=== PATIENT | male | born 1940 | race Caucasian/White ===

== ENCOUNTER 2017-11-26 07:20 | Day surgery (SDC) | payer MEDICARE, BC ==
[2017-11-18 16:49] VITALS: BMI 32.8
[2017-11-26] MEDS ORDERED: SODIUM CHLORIDE 0.9% 1,000 ML IV ONE (07:45)
[2017-11-26 08:09] VITALS: TEMP 97.9
[2017-11-26] MEDS ORDERED: SODIUM CHLORIDE 0.9% 1,000 ML IV SCH ×2 (08:15→09:15)
[2017-11-26 08:16] LABS: Basophils # (A) 0.1 k/uL (0-0.2); Basophils % (A) 1 %; Eosinophils # (A) 0.1 k/uL (0-0.7); Eosinophils % (A) 2 %; HCT 42.3 % (39.0-53.0); HGB 14.3 gm/dL (13.0-17.5); Lymphocytes # (A) 1.1 k/uL (1.0-4.8); Lymphocytes % (A) 27 %; MCH 28.9 pg (25.0-35.0); MCHC 33.8 g/dL (31.0-37.0); MCV 85.5 fL (80.0-100.0); Mean Platelet Volume 7.8; Monocytes # (A) 0.3 k/uL (0-1.0); Monocytes % (A) 7 %; Neutrophils # (A) 2.6 k/uL (1.3-7.7); Neutrophils % (A) 62 %; Platelet Count 166 k/uL (150-450); RBC 4.95 m/uL (4.30-5.90); RDW 14.5 % (11.5-15.5); WBC 4.3 k/uL (3.8-10.6)
[2017-11-26 08:24] LABS: Glucose,Whole Blood 155 mg/dL (75-99)
[2017-11-26 08:38] LABS: Calcium 9.3 mg/dL (8.4-10.2); Potassium 4.1 mmol/L (3.5-5.1)
[2017-11-26] MEDS ORDERED: MIDAZOLAM 2 MG/2 ML VIAL IVP ONE (08:54)
[2017-11-26] MEDS ORDERED: LIDOCAINE 1% (PF) 10MG/ML VIAL SQ ONE (08:55)
[2017-11-26] MEDS ORDERED: IOPAMIDOL-250 50ML BTL INTRAARTER ONE (09:08)
[2017-11-26] MEDS ORDERED: IOPAMIDOL-250 100ML BTL INTRAARTER ONE (09:08)
--- NOTE | 2017-11-26 09:41 | AN ---
ANGIOGRAPHY REPORT DATE OF SERVICE: 11/26/2017 PERFORMING PHYSICIAN: Robin Lucas MD, Wafer Polishing Lead Worker PROCEDURE PERFORMED: 1. An abdominal aortogram. 2. Bilateral lower extremities runoff. INDICATION: This is a very pleasant 77-year-old gentleman who sees Dr. Doe in the office as an outpatient with a past medical history significant for end-stage renal disease and the patient status post kidney transplant as well as diabetes, hypertension, and dyslipidemia, was experiencing bilateral lower extremities intermittent claudication and underwent an arterial duplex study which revealed occluded left SFA and severe disease involving the right SFA. Because of that and because of his symptoms, an abdominal aortogram and bilateral lower extremities runoff was advised. COMPLICATION: None. LEVEL OF SEDATION: Moderate with sedation length of 16 minutes. PROCEDURE DESCRIPTION: After obtaining an informed consent, the patient was brought to the cardiac lab pack chemist. The right common femoral artery was cannulated using micropuncture technique, the micropuncture wire passed easily, then I placed a 5-South Sudanese sheath in the right common femoral artery. After that, I did an abdominal aortogram and bilateral lower extremities runoff using 5-[place]ese pigtail catheter which was initially placed at the level of the renal arteries, then it was pulled into above the bifurcation of the aorta to right and left common iliac arteries. The procedure was completed without any complication. SELECTIVE PERIPHERAL ANGIOGRAM: 1. The abdominal aorta is calcified with mild disease only. 2. COMMON ILIAC ARTERIES: The right and left common iliac arteries are calcified with intermediate lesion in the range of 50% to 60%. 3. THE INTERNAL ILIAC ARTERIES: The right internal iliac artery appeared to be patent as well as the left internal iliac artery. The transplanted kidney was well opacified in the right pelvis. 4. EXTERNAL ILIAC ARTERIES: The right and left external iliac arteries appeared to be angiographically normal. 5. COMMON FEMORAL ARTERIES: The right common femoral artery appeared to be normal as well as the and the left common femoral artery appeared to have mild disease only. 6. PROFUNDA: The right and left profunda are patent. 7. THE SFA: The right SFA and left SFA are heavily calcified with short area of AIR DEFENSE SPECIALIST bilaterally. 8. POPLITEAL: The right and left popliteal appeared to be calcified with mild disease only. 9. BELOW THE KNEE: The arteries below the knee were not well visualized but probably there are 3-vessel runoff below the knee bilaterally. CONCLUSION: 1. Intermediate to severe bilateral common iliac artery disease. 2. Occluded bilateral SFA with short area of occlusion bilaterally as well as heavily calcified arteries. POSTPROCEDURE MANAGEMENT: 1. Gradient measurement across the iliac artery to assess for flow-limiting lesions. 2. PRINCIPAL DATA ARCHITECT of the right and left SFA on 2 separate sessions. MIKAELA / LUCASN: [id number] /
[2017-11-26 10:14] VITALS: RESP 16
--- NOTE | 2017-11-26 10:45 | IR ---
EXAMINATION TYPE: IR angio abdominal w runoff DATE OF EXAM: 11/26/2017 COMPARISON: NONE HISTORY: Peripheral vascular occlusive disease. Fluoroscopy was provided to the referring clinician. See dictated report from cardiology.
[2017-11-26 11:58] LABS: Glucose,Whole Blood 186 mg/dL (75-99)
[2017-11-26] MEDS ORDERED: INSULIN ASPART 100 UNIT/ML 1 ML 10 ML VIAL SQ SCH (12:30)
[2017-11-26 12:46] VITALS: BP 159/80; PULSE 65
[2017-11-26] MEDS: SODIUM CHLORIDE 0.9% 250 ML IV SCH ×7 (12:53→15:21)
== END 2017-11-26 16:03 | disposition home or self-care (01) ==
LOC: CATHCVL 07:20 → EDSEX 07:20 → 3OBS 09:31 → CATHCVL 16:03
PROVIDERS: ATTEND Internal Medicine Interventional Cardiology
DX: I70.213 Atherosclerosis of native arteries of extremities with intermittent claudication, bilateral legs (principal); I70.0 Atherosclerosis of aorta; I25.10 Atherosclerotic heart disease of native coronary artery without angina pectoris; E11.22 Type 2 diabetes mellitus with diabetic chronic kidney disease; I25.2 Old myocardial infarction; I12.9 Hypertensive chronic kidney disease with stage 1 through stage 4 chronic kidney disease, or unspecified chronic kidney disease; N18.9 Chronic kidney disease, unspecified; E78.5 Hyperlipidemia, unspecified; E11.51 Type 2 diabetes mellitus with diabetic peripheral angiopathy without gangrene; Z94.0 Kidney transplant status; Z79.4 Long term (current) use of insulin; Z79.899 Other long term (current) drug therapy; Z79.82 Long term (current) use of aspirin
CPT/HCPCS: 36200; 75625; 75716; 80048; 85025; 83036; C1769 ×3; C1894; J2250; J2001; Q9966 ×2

== ENCOUNTER → 2017-12-19 | Outpatient (CLI) | payer MEDICARE, BC ==
[2017-12-19 11:47] LABS: HCT 45.5 % (39.0-53.0); HGB 14.8 gm/dL (13.0-17.5); MCH 28.5 pg (25.0-35.0); MCHC 32.4 g/dL (31.0-37.0); MCV 87.9 fL (80.0-100.0); Mean Platelet Volume 7.8; Platelet Count 196 k/uL (150-450); RBC 5.18 m/uL (4.30-5.90); RDW 14.6 % (11.5-15.5); WBC 5.5 k/uL (3.8-10.6)
== END | disposition home or self-care (01) ==
LOC: LABPAT 11:19
PROVIDERS: ATTEND Internal Medicine Interventional Cardiology
DX: Z01.818 Encounter for other preprocedural examination (principal); I10 Essential (primary) hypertension; I70.213 Atherosclerosis of native arteries of extremities with intermittent claudication, bilateral legs; E78.1 Pure hyperglyceridemia
CPT/HCPCS: 36415; 85027

== ENCOUNTER 2017-12-24 08:20 | Day surgery (SDC) | payer MEDICARE, BC ==
[2017-12-18 15:31] VITALS: BMI 32.8
[2017-12-24] MEDS: ASPIRIN 325 MG TAB PO SCH (09:22)
[2017-12-24] MEDS ORDERED: SODIUM CHLORIDE 0.9% 1,000 ML IV ONE (09:25)
[2017-12-24 10:00] LABS: Glucose,Whole Blood 168 mg/dL (75-99)
[2017-12-24] MEDS ORDERED: LIDOCAINE 1% INJ 10MG/ML (20 ML MDV) SQ ONE (13:21)
[2017-12-24] MEDS: MIDAZOLAM 2 MG/2 ML VIAL IVP ONE ×3 (13:23→13:38)
[2017-12-24] MEDS: fentaNYL (PF) 50 MCG/ML 2 ML AMP IVP ONE ×2 (13:23→14:16)
[2017-12-24] MEDS ORDERED: CLOPIDOGREL 75 MG TAB PO ONE (13:37)
[2017-12-24] MEDS: NITROGLYCERIN 1000MCG/10ML SYRINGE INTRAARTER ONE ×2 (16:09→16:17)
[2017-12-24] MEDS ORDERED: niCARdipine Syringe (1,000 mcg/10 mL) INTRAARTER ONE (16:17)
[2017-12-24] MEDS ORDERED: IOPAMIDOL-250 100ML BTL INTRAARTER ONE (16:32)
[2017-12-24] MEDS ORDERED: SODIUM CHLORIDE 0.9% 1,000 ML IV SCH (16:45)
[2017-12-24] MEDS ORDERED: INSULIN ASPART 100 UNIT/ML 1 ML 10 ML VIAL SQ SCH (17:30)
[2017-12-24] MEDS: SODIUM CHLORIDE 0.9% 1,000 ML IV SCH ×4 (17:46→21:51)
[2017-12-24 18:12] LABS: Glucose,Whole Blood 112 mg/dL (75-99)
[2017-12-24] MEDS ORDERED: ATROPINE SULFATE 0.1 MG/ML 10ML SYRINGE ONE (18:39)
[2017-12-24] MEDS ORDERED: MORPHINE SULFATE 2 MG/ML SYRINGE IVP ONE (19:50)
[2017-12-24] MEDS ORDERED: HYDROcodone/APAP 5-325MG 1 EACH TAB PO PRN (19:51)
--- NOTE | 2017-12-24 19:58 | LTR ---
DATE OF SERVICE: 12/24/2017 Dear Zafar: Mr. Galdino Riley underwent successful angioplasty and stenting of the left femoral artery with good angiographic results and without any complication. Thank you for allowing us to participate in his care and please do not hesitate to call if you have any questions or concerns. Sincerely, MMJASONL / IJN: [id number] /
[2017-12-24 20:04] VITALS: RESP 18
[2017-12-24 20:47] LABS: Glucose,Whole Blood 89 mg/dL (75-99)
[2017-12-24] MEDS ORDERED: INSULIN DETEMIR 100 UNIT/ML 10 ML VIAL SQ SCH (21:00)
[2017-12-24] MEDS ORDERED: NON-FORMULARY DRUG (Fish Oil/Dha/Epa [Fish Oil 1,200 Mg Fish Oil] 1,000 MG) PO SCH (21:00)
[2017-12-24] MEDS ORDERED: ATORVASTATIN 10 MG TAB PO SCH (21:00)
[2017-12-24] MEDS ORDERED: TAMSULOSIN 0.4 MG CAP.ER.24H PO SCH (21:00)
[2017-12-24] MEDS: MYCOPHENOLATE MOFETIL 500 MG TAB PO SCH (21:28)
[2017-12-24] MEDS: MYCOPHENOLATE MOFETIL 250 MG CAP PO SCH (21:28)
[2017-12-24] MEDS: TACROLIMUS 1 MG CAP PO SCH (21:29)
[2017-12-24] MEDS: amLODIPine 5 MG TAB PO SCH (21:51)
[2017-12-25] MEDS: ASPIRIN 325 MG TAB PO SCH (05:02)
--- NOTE | 2017-12-25 05:43 | AN ---
ANGIOGRAPHY REPORT PERCUTANEOUS PERIPHERAL INTERVENTION: DATE OF SERVICE: December 24, 2017 PERFORMING PHYSICIAN: Robin Lucas MD, shaper operator. PROCEDURE PERFORMED: 1. Selective left hlvvm-rxr-dvjr angiogram. 2. Selective left popliteal/SFA angiogram. 3. Selective right common and external iliac arteries angiogram. 4. Selective right common femoral artery angiogram. 5. An atherectomy of the left SFA using the TurboHawk device with extraction of plaque. 6. Balloon angioplasty of the right SFA using drug-coated balloon with inadequate angiographic results. 7. Successful stenting of the mid and distal left SFA using a 7.0 x 100 and 7.0 x 120 mm drug-coated balloon with excellent angiographic results. INDICATION: This is a pleasant 77-year-old gentleman who sees Dr. Doe as an outpatient with history of end-stage renal disease and status post renal transplant who was experiencing bilateral lower extremities intermittent claudication and underwent a peripheral angiogram and that revealed occluded bilateral SFA. He was brought today to undergo a JAVA J2EE APPLICATION DEVELOPER of the left SFA. APPROACH: Right common femoral artery. COMPLICATION: None. LEVEL OF SEDATION: Moderate, sedation length of 3 hours. PROCEDURE DESCRIPTION: After obtaining an informed consent, the patient was brought to the cardiac slab inspector. The right common femoral artery was cannulated using micropuncture technique, the micropuncture wire passed easily then I placed a 6-Ukrainian sheath in the right common femoral artery. I placed a 6-Ukrainian 11 cm sheath. Anticoagulation was initiated using heparin and the patient was given a weight-based heparin. After that I did select left SFA using a Rim catheter with 0.035 stiff Glidewire. I had a hard time going up and over. Finally I was able to make the sheath going using 0.035 stiff Glidewire with a 55 cm 6-Ukrainian Jasbir sheath with support of multipurpose catheter inside the sheath. After that I did selective left idthw-erd-cuhz angiogram, selective left popliteal/SFA angiogram, selective left SFA angiogram. After that, I tried crossing the chronic total occlusion of the left SFA using tip Glidewire, but I ended in subintimal space. Finally I was able to cross it using 0.035 Glidewire, which was stiff Glidewire with the backup support of 0.035 catheter. After that, I did selective left popliteal angiogram to prove that I was in the true lumen. Subsequently I did exchange my 0.035 wire into 0.014 mailman wire using the 0.035 CXI. I did multiple runs of directional atherectomy using the TurboHawk device. After that, I did balloon angioplasty using using 6 mm Chocolate balloon and subsequently 6 mm drug- coated balloon. There was an area of concern in the proximal SFA and distal left SFA. Because of that, I decided to cover that with a stent. For the lesion in the left mid SFA, I covered that with Zilver PTX drug coated stent where I deployed 6 x 100 mm. The following angiogram showed good angiographic results. After that, I deployed a 7 x 120 mm another Zilver PTX distal to the previous stent where there was about 2 mm overlap between the 2 stents. After that I post dilated the stent using 6 mm balloon. The following angiogram showed excellent angiographic results with good flow and with 3- vessel runoff similar to before. After that, I did exchange my long sheath into 11 cm 6-Ukrainian sheath. I did selective right iliac angiogram to check to make sure there was no dissection in the right iliac impeding the flow to the transplanted kidney and there was good flow to the transplanted kidney. The procedure was completed without any complication. POSTPROCEDURE MANAGEMENT: 1. Dual antiplatelet therapy. 2. Risk factors modifications. 3. Follow up with the patient. MIKAELA / MARITO: [id number] /
[2017-12-25 06:14] LABS: Glucose,Whole Blood 211 mg/dL (75-99)
[2017-12-25 06:29] LABS: Basophils % (A) 0 %; Eosinophils % (A) 0 %; HCT 42.7 % (39.0-53.0); Lymphocytes # (A) 0.9 k/uL (1.0-4.8); Lymphocytes % (A) 11 %; MCHC 32.8 g/dL (31.0-37.0); MCV 88.5 fL (80.0-100.0); Mean Platelet Volume 7.5; Monocytes # (A) 0.4 k/uL (0-1.0); Monocytes % (A) 5 %; Neutrophils # (A) 6.5 k/uL (1.3-7.7); Neutrophils % (A) 83 %; Platelet Count 165 k/uL (150-450); RBC 4.82 m/uL (4.30-5.90); RDW 14.6 % (11.5-15.5); WBC 7.8 k/uL (3.8-10.6)
[2017-12-25 06:38] LABS: Anion Gap 13 mmol/L; Blood Urea Nitrogen 18 mg/dL (9-20); Calcium 9.3 mg/dL (8.4-10.2); Carbon Dioxide 20 mmol/L (22-30); Chloride 102 mmol/L (98-107); Glucose 208 mg/dL (74-99); Potassium 4.7 mmol/L (3.5-5.1); Sodium 135 mmol/L (137-145)
[2017-12-25] MEDS ORDERED: INSULIN ASPART 100 UNIT/ML 1 ML 10 ML VIAL SQ SCH ×3 (07:30→12:30)
[2017-12-25] MEDS ORDERED: PANTOPRAZOLE 40 MG TABLET PO SCH (07:30)
[2017-12-25] MEDS ORDERED: METOPROLOL SUCCINATE (ER) 100 MG TAB.ER.24H PO SCH (09:00)
[2017-12-25] MEDS ORDERED: ASPIRIN 325 MG TAB PO SCH (09:00)
[2017-12-25] MEDS ORDERED: CLOPIDOGREL 75 MG TAB PO SCH (09:00)
[2017-12-25] MEDS ORDERED: ALLOPURINOL 100 MG TAB PO SCH (09:00)
[2017-12-25] MEDS ORDERED: ONDANSETRON 4 MG/2 ML VIAL IVP STA (09:08)
[2017-12-25] MEDS: MYCOPHENOLATE MOFETIL 250 MG CAP PO SCH (09:33)
[2017-12-25] MEDS: MYCOPHENOLATE MOFETIL 500 MG TAB PO SCH (09:33)
[2017-12-25] MEDS: TACROLIMUS 1 MG CAP PO SCH (09:34)
[2017-12-25] MEDS: amLODIPine 5 MG TAB PO SCH (09:40)
--- NOTE | 2017-12-25 10:27 | IR ---
Fluoroscopy HISTORY: Occlusion left superficial femoral artery 68 minutes fluoroscopy time supplied to the referring clinician. 323 intraoperative C-arm images doc ument the procedure. See dictated report from cardiology.
--- NOTE | 2017-12-25 10:29 | DS ---
DISCHARGE SUMMARY ADMISSION DATE: 12/24/2017. DISCHARGE DATE: 12/25/2017. BRIEF HISTORY: This is a very pleasant 77-year-old gentleman who sees Dr. Doe in the office as an outpatient with known history off endstage renal disease and status post renal transplant with a normal GFR, who was experiencing bilateral lower extremities intermittent claudication and underwent a peripheral angiogram a few weeks ago and that showed severe PAD with occluded bilateral SFA. The patient was admitted to the hospital yesterday and underwent a RAM PRESS OPERATOR of the left SFA from right groin approach On follow up with him today, he is asymptomatic. The patient is going to be discharged home today and I will see him in the office next week for RAM PRESS OPERATOR of the right SFA. MMODL / IJN: [id number] /
[2017-12-25 10:54] VITALS: BP 165/74; PULSE 84; TEMP 97.8
[2017-12-25] MEDS ORDERED: CALCIUM CARB-VIT D 500MG-200UN 1 EACH TAB PO SCH (12:00)
[2017-12-25] MEDS ORDERED: CHOLECALCIFEROL 400 UNIT TAB PO SCH (12:00)
[2017-12-25 12:44] LABS: Hemoglobin A1C 7.3 % (4.0-6.0)
== END 2017-12-25 10:45 | disposition home or self-care (01) ==
LOC: CATHCVL 08:20 → 6SEL 16:24 → CATHCVL 12-25 10:45
PROVIDERS: ATTEND Internal Medicine Interventional Cardiology
DX: I70.213 Atherosclerosis of native arteries of extremities with intermittent claudication, bilateral legs (principal); E11.51 Type 2 diabetes mellitus with diabetic peripheral angiopathy without gangrene; I10 Essential (primary) hypertension; Z94.0 Kidney transplant status; Z87.448 Personal history of other diseases of urinary system; E78.5 Hyperlipidemia, unspecified; I25.10 Atherosclerotic heart disease of native coronary artery without angina pectoris; I45.10 Unspecified right bundle-branch block; I45.89 Other specified conduction disorders; I25.2 Old myocardial infarction; F17.210 Nicotine dependence, cigarettes, uncomplicated; Z79.82 Long term (current) use of aspirin; Z79.4 Long term (current) use of insulin; Z79.899 Other long term (current) drug therapy
CPT/HCPCS: 37227; 80048; 85025; 83036; C1769 ×9; C1894 ×2; C1887; C1725 ×3; C1714; C2623 ×2; C1874; J2250; J2405; J7517 ×4; J7507 ×2; J2001; J3010; J2270; J1644; Q9966

== ENCOUNTER 2018-01-14 11:20 | Day surgery (SDC) | payer MEDICARE, BC ==
[2017-12-31 14:34] VITALS: BMI 32.8
[~2018-01-14 11:20] MED LIST: SODIUM CHLORIDE 0.9% 1,000 ML in EMPTY BAG 1 BAG IV ONE
[2018-01-14] MEDS ORDERED: SODIUM CHLORIDE 0.9% 250 ML IV ONE (11:32)
[2018-01-14 11:57] LABS: Glucose,Whole Blood 157 mg/dL (75-99)
[2018-01-14 12:06] LABS: Basophils % (A) 1 %; Eosinophils # (A) 0.1 k/uL (0-0.7); Eosinophils % (A) 2 %; HCT 44.9 % (39.0-53.0); HGB 14.8 gm/dL (13.0-17.5); Lymphocytes # (A) 1.2 k/uL (1.0-4.8); Lymphocytes % (A) 23 %; MCH 28.7 pg (25.0-35.0); MCHC 32.9 g/dL (31.0-37.0); MCV 87.4 fL (80.0-100.0); Mean Platelet Volume 7.7; Monocytes # (A) 0.3 k/uL (0-1.0); Monocytes % (A) 5 %; Neutrophils # (A) 3.5 k/uL (1.3-7.7); Neutrophils % (A) 68 %; Platelet Count 215 k/uL (150-450); RBC 5.14 m/uL (4.30-5.90); RDW 14.6 % (11.5-15.5); WBC 5.1 k/uL (3.8-10.6)
[2018-01-14 12:13] LABS: Anion Gap 12 mmol/L; Blood Urea Nitrogen 17 mg/dL (9-20); Calcium 10.1 mg/dL (8.4-10.2); Carbon Dioxide 26 mmol/L (22-30); Chloride 102 mmol/L (98-107); Glucose 159 mg/dL (74-99); Potassium 4.6 mmol/L (3.5-5.1); Sodium 140 mmol/L (137-145)
[2018-01-14] MEDS: fentaNYL (PF) 50 MCG/ML 2 ML AMP IV ONE ×4 (13:15→16:14)
[2018-01-14] MEDS: MIDAZOLAM 2 MG/2 ML VIAL IV ONE ×2 (13:15→13:22)
[2018-01-14] MEDS ORDERED: LIDOCAINE 1% INJ 10MG/ML (20 ML MDV) SQ ONE ×2 (13:16→15:02)
[2018-01-14] MEDS ORDERED: SODIUM CHLORIDE 0.9% 1,000 ML IV ONE ×2 (13:17→17:12)
[2018-01-14] MEDS ORDERED: HEPARIN SODIUM 1,000 UN/ML (10ML VL) IV ONE ×2 (13:20→14:22)
[2018-01-14] MEDS ORDERED: SODIUM CHLORIDE 0.9% 500 ML with niCARdipine 6.25 MG, NITROGLYCERIN-D5W PMX 0.05 MG, HE... IV ONE ×4 (15:00)
[2018-01-14] MEDS: MIDAZOLAM 2 MG/2 ML VIAL IVP ONE ×2 (15:52→16:14)
[2018-01-14] MEDS ORDERED: fentaNYL (PF) 50 MCG/ML 2 ML AMP IVP ONE (16:55)
[2018-01-14] MEDS: niCARdipine Syringe (1,000 mcg/10 mL) INTRAARTER ONE ×2 (17:08→17:13)
[2018-01-14] MEDS: NITROGLYCERIN 1000MCG/10ML SYRINGE INTRAARTER ONE ×2 (17:08→17:14)
[2018-01-14] MEDS ORDERED: CLOPIDOGREL 75 MG TAB PO ONE ×2 (17:09→17:15)
[2018-01-14] MEDS ORDERED: SODIUM CHLORIDE 0.9% 1,000 ML IV SCH (17:30)
[2018-01-14] MEDS ORDERED: IOPAMIDOL-250 100ML BTL INTRAARTER ONE (17:49)
[2018-01-14] MEDS ORDERED: IOPAMIDOL-250 50ML BTL INTRAARTER ONE ×2 (17:50)
[2018-01-14] MEDS ORDERED: ONDANSETRON 4 MG/2 ML VIAL IVP STA (20:11)
[2018-01-14] MEDS: MYCOPHENOLATE MOFETIL 250 MG CAP PO SCH (20:20)
[2018-01-14] MEDS: MYCOPHENOLATE MOFETIL 500 MG TAB PO SCH (20:20)
[2018-01-14] MEDS: TACROLIMUS 1 MG CAP PO SCH (20:21)
[2018-01-14] MEDS: amLODIPine 5 MG TAB PO SCH (20:22)
[2018-01-14] MEDS ORDERED: ATROPINE SULFATE 0.1 MG/ML 10ML SYRINGE ONE (20:28)
--- NOTE | 2018-01-14 20:33 | LTR ---
January 14, [address] Karine Pedroza: Mr. Galdino Riley underwent successful balloon angioplasty and stenting of the right femoral artery with good angiographic results and without any complication. Thank you for allowing me to participate in his care and please do not hesitate to call if you have any question or concern. MMODL / IJN: [id number] /
[2018-01-14 20:37] LABS: Glucose,Whole Blood 194 mg/dL (75-99)
--- NOTE | 2018-01-14 20:51 | AN ---
ANGIOGRAPHY REPORT DATE OF SERVICE: January 14, 2018 PERFORMING PHYSICIAN: Robin Lucas MD, raiser helper. PROCEDURE PERFORMED: 1. Selective right mqvsv-wbw-lazx angiogram. 2. Selective right SFA angiogram. 3. Selective left common femoral artery angiogram. 4. Successful crossing chronic total occlusion of the right SFA in a retrograde fashion from a pedal approach. 5. Intravascular ultrasound IVUS of the right SFA. 6. Balloon angioplasty of the proximal right SFA using 6 mm drug-coated balloon with good angiographic results. 7. Successful stenting of the mid and distal right SFA using Zilver PTX drug coated stent with good angiographic results as well. INDICATION: This is a pleasant 77-year-old gentleman who sees Dr. Doe in the office as an outpatient with known history off the end-stage renal disease, who does have a kidney transplant and currently has normal creatinine, was experiencing bilateral lower extremities intermittent claudication. He underwent an abdominal aortogram and bilateral lower extremity runoff a few weeks ago and that revealed occluded bilateral SFA and he was brought today to undergo a ANIMAL CARE WORKER of the right SFA. He underwent ANIMAL CARE WORKER of the left SFA few weeks ago. APPROACH: Left common femoral artery. COMPLICATION: None. LEVEL OF SEDATION: Moderate with sedation length of 242 minutes. PROCEDURE DESCRIPTION: After obtaining an informed consent, the patient was brought to cardiac dental laboratory worker. The left common femoral artery was cannulated using micropuncture technique, the micropuncture wire passed easily then I placed an 11 cm 6-Indian sheath in the left common femoral artery. I did select the right SFA using a 5-Indian rim catheter with 0.035 Wylie Advantage wire. Then I did exchange my 11 cm 6-Indian sheath into 55 cm 6-Indian Jasbir sheath using 0.035 Wylie Advantage wire. The tip of the sheath was positioned in the right common femoral artery. I attempted crossing the chronic total occlusion of the right SFA in antegrade fashion using 0.14 stator wire, 0.18 stator wire, 0.18 [place] tip Glidewire, as well as 0.35 Glidewire and was unsuccessful because I ended in the subintimal space. Because of that, I decided to cross the TUBING MACHINE TENDER coming from a medial approach. I did access the right posterior tibial artery using a micropuncture technique under ultrasound guidance, then I placed a 4-Indian sheath in the right posterior tibial artery. I was able to cross the chronic total occlusion of the right SFA in a retrograde fashion using an 0.035 Glidewire with 0.35 CXI catheter. I did after that, snare my wire from above and I finished the case from above. I did balloon angioplasty using 4 mm balloon and subsequently 6 mm balloon. After that I did intravascular ultrasound and I was in the subintimal space most of the SFA except for the proximal portion cross the profunda. At that point, I decided to cover the subintimal space using a stent. I did deploy distally 7.0 x 140 mm Zilver PTX and in the mid 7.0 x 140 as well Zilver PTX. There was a 2 mm overlap between the 2 stents. I post dilated the stent using 7 mm balloon. Proximally, I did use direct drug coated balloon which was 6 mm. The balloon was inflated for 1 minute. The following angiogram showed good angiographic results in the proximal to mid right SFA with residual stenosis in the distal right SFA about 40-50 percent because of the heavily calcified and eccentric lesion. At that point, I decided to stop. I did exchange my long sheath into short sheath using .0.35 Wylie Advantage wire. Then I did selective left common femoral artery angiogram. The procedure was completed without any complication. POSTPROCEDURE MANAGEMENT: 1. Dual anti-platelet therapy. 2. Risk factors modifications. 3. Follow up with the patient. MMODL / IJN: [id number] /
[2018-01-14] MEDS ORDERED: NON-FORMULARY DRUG (Fish Oil/Dha/Epa [Fish Oil 1,200 Mg Fish Oil] 1,200 MG) PO SCH (21:00)
[2018-01-14] MEDS ORDERED: INSULIN DETEMIR 100 UNIT/ML 10 ML VIAL SQ SCH (21:00)
[2018-01-14] MEDS ORDERED: ATORVASTATIN 10 MG TAB PO SCH (21:00)
[2018-01-14] MEDS ORDERED: TAMSULOSIN 0.4 MG CAP.ER.24H PO SCH (21:00)
[2018-01-15 00:31] VITALS: RESP 16
[2018-01-15 06:04] LABS: Glucose,Whole Blood 181 mg/dL (75-99)
[2018-01-15 06:56] LABS: Basophils % (A) 1 %; Eosinophils % (A) 1 %; HCT 36.6 % (39.0-53.0); Lymphocytes # (A) 0.9 k/uL (1.0-4.8); Lymphocytes % (A) 13 %; MCH 28.8 pg (25.0-35.0); MCHC 32.9 g/dL (31.0-37.0); MCV 87.5 fL (80.0-100.0); Mean Platelet Volume 7.7; Monocytes # (A) 0.4 k/uL (0-1.0); Monocytes % (A) 5 %; Neutrophils # (A) 5.5 k/uL (1.3-7.7); Neutrophils % (A) 80 %; Platelet Count 181 k/uL (150-450); RBC 4.18 m/uL (4.30-5.90); RDW 14.8 % (11.5-15.5); WBC 6.8 k/uL (3.8-10.6)
[2018-01-15 07:21] LABS: Anion Gap 9 mmol/L; Blood Urea Nitrogen 17 mg/dL (9-20); Calcium 9.1 mg/dL (8.4-10.2); Carbon Dioxide 24 mmol/L (22-30); Chloride 104 mmol/L (98-107); Glucose 166 mg/dL (74-99); Potassium 4.5 mmol/L (3.5-5.1); Sodium 137 mmol/L (137-145)
[2018-01-15] MEDS ORDERED: INSULIN ASPART 100 UNIT/ML 1 ML 10 ML VIAL SQ SCH ×3 (07:30→17:30)
[2018-01-15] MEDS ORDERED: PANTOPRAZOLE 40 MG TABLET PO SCH (07:30)
[2018-01-15 07:56] VITALS: BP 163/71; PULSE 82; TEMP 98.2
[2018-01-15] MEDS: TACROLIMUS 1 MG CAP PO SCH (07:59)
[2018-01-15] MEDS: MYCOPHENOLATE MOFETIL 250 MG CAP PO SCH (08:00)
[2018-01-15] MEDS: MYCOPHENOLATE MOFETIL 500 MG TAB PO SCH (08:01)
[2018-01-15] MEDS: amLODIPine 5 MG TAB PO SCH (08:08)
[2018-01-15] MEDS ORDERED: LISINOPRIL 5 MG TAB PO SCH (09:00)
[2018-01-15] MEDS ORDERED: CLOPIDOGREL 75 MG TAB PO SCH (09:00)
[2018-01-15] MEDS ORDERED: ASPIRIN 325 MG TAB PO SCH (09:00)
[2018-01-15] MEDS ORDERED: ALLOPURINOL 100 MG TAB PO SCH (09:00)
[2018-01-15] MEDS ORDERED: CALCIUM CARB-VIT D 500MG-200UN 1 EACH TAB PO SCH (09:00)
[2018-01-15] MEDS ORDERED: METOPROLOL SUCCINATE (ER) 50 MG TAB.ER.24H PO SCH (09:00)
--- NOTE | 2018-01-15 10:19 | IR ---
EXAMINATION TYPE: IR stent intravas non coronary DATE OF EXAM: 01/14/2018 COMPARISON: NONE HISTORY: Peripheral vascular occlusive disease. Fluoroscopy was provided to the referring clinician. See dictated report from cardiology.
--- NOTE | 2018-01-15 10:31 | DS ---
DISCHARGE SUMMARY DATE OF ADMISSION: 01/14/2018 DATE OF DISCHARGE: 01/15/2018 BRIEF HISTORY: This is a pleasant 77-year-old gentleman who sees Dr. Doe in the office as an outpatient who was admitted to the hospital yesterday and underwent successful POULTRY BREEDER of the right SFA. On follow up with him today, he is doing good and he is asymptomatic. I can feel good right posterior tibial pulse. The left groin which was the access site is bruised significantly, but there is no discrete hematomas. The patient is going to be discharged home today on dual anti-platelet therapy and I will follow up in the office in a week. MMJASONL / LUCASN: [id number] /
[2018-01-15] MEDS ORDERED: CHOLECALCIFEROL 400 UNIT TAB PO SCH (12:00)
== END 2018-01-15 10:33 | disposition home or self-care (01) ==
LOC: CATHCVL 11:20 → 6SEL 17:19 → CATHCVL 01-15 10:33
PROVIDERS: ATTEND Internal Medicine Interventional Cardiology
DX: I70.213 Atherosclerosis of native arteries of extremities with intermittent claudication, bilateral legs (principal); I10 Essential (primary) hypertension; E78.5 Hyperlipidemia, unspecified; I25.2 Old myocardial infarction; F17.210 Nicotine dependence, cigarettes, uncomplicated; E11.22 Type 2 diabetes mellitus with diabetic chronic kidney disease; I12.9 Hypertensive chronic kidney disease with stage 1 through stage 4 chronic kidney disease, or unspecified chronic kidney disease; N18.9 Chronic kidney disease, unspecified; Z79.82 Long term (current) use of aspirin; Z79.4 Long term (current) use of insulin; Z79.899 Other long term (current) drug therapy; Z79.02 Long term (current) use of antithrombotics/antiplatelets
CPT/HCPCS: 37226; 85347; 37252; 80048 ×2; 85025 ×2; C1894 ×3; C1773; C1769 ×8; C1725 ×3; C1753; C2623; C1874; J2250; J1644 ×2; J2405; J7517 ×4; J7507 ×2; J2001; J3010; Q9966 ×2

== ENCOUNTER 2018-01-18 11:51 | Emergency (ER) | payer MEDICARE, BC ==
[2018-01-18 11:56] VITALS: BP 148/72; PULSE 93; RESP 18; TEMP 98.4
--- NOTE | 2018-01-18 12:27 | ED ---
General Adult HPI - General Chief complaint: Extremity Problem,Nontraumatic Stated complaint: Post Op pain Time Seen by Provider: 01/18/18 11:59 Source: patient, family, RN notes reviewed, old records reviewed Mode of arrival: ambulatory Limitations: no limitations - History of Present Illness Initial comments: Patient 77-year-old male status post angioplasty of the right leg 4 days, presented to the emergency room today with a chief complaint of a gouty flareup. Patient does admit that he has pain over the first MTP joint of the right foot. Patient states symptoms feel like gout to him. He states he was concerned because it was the same length that he had angioplasty performed and wanted to be safe. Patient states that the pain from the procedure has improved and has become less. Patient denies any other symptoms. Patient denies any recent fever, chills, shortness of breath, chest pain, back pain, abdominal pain, nausea or vomiting, headaches or visual changes, or any other complaints. - Related Data Home Medications Medication Instructions Recorded Confirmed Allopurinol [Zyloprim] 100 mg PO DAILY 11/18/17 01/07/18 Aspirin 162.5 mg PO DAILY 11/18/17 01/14/18 Calcium Carbonate/Vitamin D3 1 each PO DAILY 11/18/17 01/07/18 [Calcium 600-Vit D3 400 Caplet] Cholecalciferol [Vitamin D3] 400 unit PO DAILY@1200 11/18/17 01/07/18 Fish Oil/Dha/Epa [Fish Oil 1,200 1,200 mg PO BID 11/18/17 01/07/18 mg Fish Oil] Insulin Aspart [NovoLOG] 10 units SQ AC-LUNCH 11/18/17 01/07/18 Insulin Aspart [NovoLOG] 15 units SQ AC-BRKFST 11/18/17 01/07/18 Insulin Aspart [NovoLOG] 15 units SQ AC-SUPPER 11/18/17 01/07/18 Insulin Glargine [Lantus] 34 unit SQ HS 11/18/17 01/14/18 Lisinopril [Zestril] 5 mg PO DAILY 11/18/17 01/07/18 Metoprolol Succinate (ER) [Toprol 150 mg PO DAILY 11/18/17 01/07/18 XL] Mycophenolate Mofetil [Cellcept] 250 mg PO BID 11/18/17 01/07/18 Mycophenolate Mofetil [Cellcept] 500 mg PO BID 11/18/17 01/07/18 Omeprazole [PriLOSEC] 20 mg PO AC-BRKFST 11/18/17 01/07/18 Simvastatin [Zocor] 20 mg PO HS 11/18/17 01/07/18 Tacrolimus [Prograf] 1 mg PO Q12H 11/18/17 01/07/18 Tamsulosin [Flomax] 0.4 mg PO HS 11/18/17 01/07/18 amLODIPine [Norvasc] 5 mg PO BID 11/18/17 01/07/18 Previous Rx's Medication Instructions Recorded Clopidogrel [Plavix] 75 mg PO DAILY #90 tab 12/25/17 Hydrocodone/Acetaminophen [[place] 1 each PO Q6HR PRN #10 tab 01/18/18 5-325] Allergies Allergy/AdvReac Type Severity Reaction Status Date / Time No Known Allergies Allergy Verified 01/18/18 11:56 Review of Systems ROS Statement: Those systems with pertinent positive or pertinent negative responses have been documented in the HPI. ROS Other: All systems not noted in ROS Statement are negative. Past Medical History Past Medical History: Diabetes Mellitus, Hyperlipidemia, Hypertension, Myocardial Infarction (RI), Osteoarthritis (OA), Prostate Disorder, Renal Disease, Vascular Disorder Additional Past Medical History / Comment(s): TRANSPLANTED RT KIDNEY. HX GOUT. CALF MUSCLES CRAMP W/ WALKING.Angioplasty bilateral Last Myocardial Infarction Date:: 1982 History of Any Multi-Drug Resistant Organisms: None Reported Past Surgical History: Back Surgery, Heart Catheterization, Orthopedic Surgery Additional Past Surgical History / Comment(s): 11/26/17 abd. aortogram, HX NECK FX, HAD SPINAL FUSION. EXC BENIGN TUMOR SALIVARY GLAND. RT KIDNEY TRANSPLANT. Past Anesthesia/Blood Transfusion Reactions: No Reported Reaction Past Psychological History: No Psychological Hx Reported Smoking Status: Former smoker Past Alcohol Use History: Rare Past Drug Use History: None Reported - Past Family History Father Family Medical History: Cancer Additional Family Medical History / Comment(s): MELANOMA LIP General Exam - General Exam Comments Initial Comments: General: The patient is awake and alert, in no distress, and does not appear acutely ill. Eye: Pupils are equal, round and reactive to light. Extra-ocular movements are intact. No nystagmus. There is normal conjunctiva bilaterally. No signs of icterus. Ears, nose, mouth and throat: There are moist mucous membranes and no oral lesions. Neck: The neck is supple, there is no tenderness or JVD. Musculoskeletal: Patient does have increased redness erythema over the first MTP joint. Very tender over this joint. Tender with movement of the first digit of the right foot. No tenderness into the right ankle, calf or knee area. There is no lymphangitic streaking redness going up the foot from this area. Sensation intact. Strength 5/5. Pedal Pulses 2+. Neurological: A&O x 3. CN II-XII intact, There are no obvious motor or sensory deficits. Coordination appears grossly intact. Speech is normal. Skin: Skin is warm and dry and no rashes or lesions are noted. Psychiatric: Cooperative, appropriate mood & affect, normal judgment. Limitations: no limitations Course Vital Signs 01/18/18 11:54 Temperature 98.4 F Pulse Rate 93 Respiratory 18 Rate Blood Pressure 148/72 O2 Sat by Pulse 99 Oximetry Medical Decision Making - Medical Decision Making Patient does have history of gout states his symptoms are consistent with gout flareups that is had in the past. Patient cannot take anti-inflammatories. He is a diabetic was discussed about steroids but would prefer to stay away from these as it will affect his blood sugar. Patient will be given a short prescription for [place] to use over the next 2-3 days for pain. He is advised following up with his surgeon tomorrow in family doctor. Advised return if symptoms increase worsen. Disposition Clinical Impression: Gout of foot Disposition: HOME SELF-CARE Condition: Good Instructions: Gout (ED) Additional Instructions: Please use medication as discussed. Please follow-up with family doctor in the next 2 days of symptoms have not improved. Please return to emergency room if the symptoms increase or worsen or for any other concerns. Prescriptions: Hydrocodone/Acetaminophen [[place] 5-325] 1 each PO Q6HR PRN #10 tab PRN Reason: Pain Is patient prescribed a controlled substance at d/c from ED?: No Referrals: Sharyn Pedroza MD [Primary Care Provider] - 1-2 days Time of Disposition: 12:26
== END 2018-01-18 12:39 | disposition home or self-care (01) ==
LOC: EC 11:51
DX: M10.9 Gout, unspecified (principal); E11.9 Type 2 diabetes mellitus without complications; E78.5 Hyperlipidemia, unspecified; I10 Essential (primary) hypertension; I25.2 Old myocardial infarction; M19.90 Unspecified osteoarthritis, unspecified site; N42.9 Disorder of prostate, unspecified; Z98.62 Peripheral vascular angioplasty status; Z95.818 Presence of other cardiac implants and grafts; Z87.891 Personal history of nicotine dependence; Z94.0 Kidney transplant status; Z79.82 Long term (current) use of aspirin; Z79.4 Long term (current) use of insulin; Z79.899 Other long term (current) drug therapy
CPT/HCPCS: 99283

== ENCOUNTER → 2022-12-12 | Outpatient (CLI) | payer MEDICARE, BC ==
--- NOTE | 2022-12-13 08:41 | MR ---
EXAMINATION TYPE: MR Prostate wo/w con DATE OF EXAM: 12/12/2022 8:11 AM COMPARISON: None. CLINICAL INDICATION:Male, 82 years old with history of R97.20 ELEVATED PSA; Elevated PSA TECHNIQUE: Multi-planar, multi-sequence imaging of the pelvis is performed prior to and following the uncomplicated administration of bolus intravenous gadolinium. CONTRAST: 8.5 Gadavist Interpretive Criteria: PI-RADS v2.1 SERUM PSA: 25.65 on 11/25/2022 3.07 On 10/23/2020. SURGICAL PATHOLOGY: No data available. FINDINGS: Prostatic dimensions: 6.3 x 7.9 x 5.3 cm. Ellipsoid Volume: 138.12 (PSA density=0.19 ng/mL/mL) CENTRAL GLAND (Central and Transition Zones/CZ+TZ): Multiple bilateral, heterogenous appearing hypertrophic stromal nodules, without suspicious lesion. M edian lobe hypertrophy with protrusion into the base of the bladder. (PI-RADS 2) PERIPHERAL ZONE (PZ): Extruded BPH now noted along the base on the left peripheral zone. Bilateral linear, indistinct wedge like areas of low ADC, and low T2 signal, No evidence of masslike abnormality, or localized perfusion al hypervascularity, to further suggest a focus of clinically significant prostate cancer. (PI-RADS 2 ) SEMINAL VESICLES (SV): Symmetric and unremarkable. PERIPROSTATIC TISSUES: Unremarkable. LYMPH NODES: No enlarged pelvic lymph node. REMAINING PELVIS: Bladder wall is within normal limits given distention. No abnormal free or organized intrapelvic fluid collection. No pathologic bowel dilation or mural thickening. Left fat containing inguinal hernia OSSEOUS STRUCTURES: No suspicious osseous abnormality. IMPRESSION: 1. No specific features for high-risk prostate cancer. Maximum PI-RADS score: 2. 2. Substantial BPH, estimated gland volume 138.12 mL.
== END | disposition home or self-care (01) ==
LOC: RADMRIMAIN 06:41
DX: N40.0 Benign prostatic hyperplasia without lower urinary tract symptoms (principal); R97.20 Elevated prostate specific antigen [PSA]
CPT/HCPCS: 72197; A9585